=== PATIENT | male | born 1980 | race Caucasian/White ===

== ENCOUNTER 2018-01-18 12:41 | Emergency (ER) | payer OTHER ==
[2018-01-18 12:47] VITALS: BP 142/85; PULSE 62; TEMP 98.1; BMI 29.2
[2018-01-18] MEDS ORDERED: IBUPROFEN 600 MG TABLET (FP) PO ONE ×2 (13:18→13:27)
[2018-01-18] MEDS ORDERED: FLUORESCEIN NA 1 EA STRIP OD ONE (13:31)
[2018-01-18] MEDS ORDERED: DIPHTH,PERTUSS(ACELL),TET 0.5 ML DISP.SYRIN IM ONE (13:31)
--- NOTE | 2018-01-18 13:31 | PDOC ---
History of Present Illness - General Chief Complaint: Injury Stated Complaint: INJURY Time Seen by Provider: 01/18/18 12:59 History Source: Patient Exam Limitations: No Limitations - History of Present Illness Initial Comments: 01/18/18 13:40 Patient states while at work this morning, was taking something from a shelf in a plastic bag where it fell and landed striking him in the face. States had some heavy materials inside of the bag causing him to fall when he caught it. Patient states incurred injury to his left cheek and states vision has changed since that time. LOC, no drainage from nose or ears, no other injury. Occurred: reports: just prior to arrival, this morning Severity: reports: moderate Pain Location: reports: face, head Method of Injury: Yes: direct blow Modifying Factors: improves with: None Loss of Consciousness: no loss of consciousness Associated Symptoms (Fall): denies symptoms Past History - Travel Traveled outside of the country in the last 30 days: No Close contact w/someone who was outside of country & ill: No - Past Medical History Allergies/Adverse Reactions: Allergies Allergy/AdvReac Type Severity Reaction Status Date / Time No Known Allergies Allergy Verified 01/18/18 12:46 Home Medications: Ambulatory Orders NK [No Known Home Medication] 04/09/16 Asthma: Yes - Suicide/Smoking/Psychosocial Hx Smoking History: Never smoked Hx Alcohol Use: No Drug/Substance Use Hx: No Substance Use Type: None Review of Systems - Review of Systems Able to Perform ROS?: Yes Is the patient limited Nicaraguan proficient: Yes Constitutional: Yes: Symptoms Reported, See HPI, Malaise HEENTM: Yes: Symptoms Reported, See HPI, Eye Pain, Blurred Vision, Tearing (to ) Respiratory: Yes: See HPI. No: Symptoms reported Integumentary: Yes: Symptoms Reported, See HPI, Bruising All Other Systems: Reviewed and Negative *Physical Exam - Vital Signs Last Vital Signs Temp Pulse Resp BP Pulse Ox 98.1 F 62 16 142/85 99 01/18/18 12:45 01/18/18 12:45 01/18/18 12:45 01/18/18 12:45 01/18/18 12:45 - Physical Exam General Appearance: Yes: Nourished, Appropriately Dressed, Apparent Distress, Moderate Distress HEENT: positive: SYLVIE, Normal ENT Inspection, TMs Normal (no hemotympanum, no drainage from nose or ears, no evidence of skull fracture), Pharynx Normal, Other (patient with swollen and very tender inferior orbit, negative EOM, visual acuity is 20/100 in affected eye, 20/60 in unaffected eye) Neck: positive: Supple, Other. negative: Tender Respiratory/Chest: positive: Lungs Clear, Normal Breath Sounds Gastrointestinal/Abdominal: positive: Soft Integumentary: positive: Swelling, Ecchymosis, Bruising. 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 Tetanus/diphtheria/pertussis booster was updated today, patient given ibuprofen and ice pack and states feels better. *DC/Admit/Observation/Transfer Diagnosis at time of Disposition: Contusion of face Qualifiers: Encounter type: initial encounter Qualified Code(s): S00.83XA - Contusion of other part of head, initial encounter - Discharge Dispostion Disposition: HOME Condition at time of disposition: Stable Decision to Admit order: No - Referrals Referrals: Mayuri Greer [Primary Care Provider] - - Patient Instructions Printed Discharge Instructions: DI for Eye Contusion Additional Instructions: Rest, avoid strenuous activity or exercise for the next 24-48 hours May use ice on contusions as needed. May use Tylenol or Motrin for pain relief Watch and seek evaluation for changes in behavior including crankiness, inconsolability, quietness/ sleepiness that is inappropriate, tiredness that is inappropriate, watch for worsening and changes of behavior. Seek immediate evaluation/return to emergency department for vomiting, mental status changes, pain that's out of proportion , bloody drainage from ears or nose. Your tetanus/diphtheria/pertussis booster was updated today Followup with private physician as needed in one to 2 days for reevaluation - Post Discharge Activity Forms/Work/School Notes: Back to Work
[2018-01-18] MEDS ORDERED: FLUORESCEIN NA 1 EA STRIP ONE (13:55)
== END 2018-01-18 15:14 | disposition home or self-care (01) ==
LOC: JERFT 12:41
PROC: 3E0234Z Introduction of Serum, Toxoid and Vaccine into Muscle, Percutaneous Approach (ICD-10-PCS; principal; 2018-01-18)
DX: S00.83XA Contusion of other part of head, initial encounter (principal); W20.8XXA Other cause of strike by thrown, projected or falling object, initial encounter; Y93.89 Activity, other specified; Y92.89 Other specified places as the place of occurrence of the external cause; Y99.0 Civilian activity done for income or pay
CPT/HCPCS: 70486-TC; 90471; 90715; 99281-25

== ENCOUNTER 2018-08-27 09:10 | Emergency (ER) | payer OTHER ==
[2018-08-27 09:26] VITALS: BMI 37.8
--- NOTE | 2018-08-27 09:45 | PDOC ---
History of Present Illness - General Chief Complaint: Chest Pain Stated Complaint: CHEST PAIN Time Seen by Provider: 08/27/18 09:44 History Source: Patient, Spouse (), Topper Packer Used (Language [employer] Telephone), Old Records Exam Limitations: Language Barrier - History of Present Illness Initial Comments: HPI: 37 y/o male presenting to [facility] ED complaining of four days of blurry vision, sensation of presyncope, increased tiredness, shortness of breath, poor exertional tolerance, and left sided chest pain. States his vision is blurry and he has trouble seeing. Further states it sometimes seems like I am stepping out into thin air because I cant see below me. Has been waking up more tired than normal over the past several days; sometimes feels like he is going to pass out. Denies actually losing consciousness, falling, or recent trauma. States the chest pain is localized to the left anterior chest wall. Made worse by inspiration and movement of the left arm. States he is usually able to climb up multiple flights of stairs without difficulty but has had to stop every few steps to catch his breath. Pt is Dominican speaking. 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 Records reviewed from this facility. Pt was admitted for facial numbness. Underwent CT, CTA, and MRI without acute findings. Neurology suggested TIA ??. - Psoriasis but does not take any controlling medication Called pt's pharmacy who verified the pt had not filled medication in approx. 1 year. Last prescription was for an antibiotic. Not prescribed any maintenance medications. Review of Systems: In addition to that documented in the HPI above, the additional ROS was obtained : Constitutional: Denies fevers or chills Head: Endorses vision changes ENMT: Denies sore throat CV: Per HPI Resp: Per HPI GI: Denies vomiting or diarrhea : Denies painful urination, hematuria MSK: Denies recent trauma, pain or swelling to lower extremities Skin: Denies new rashes Neuro: Denies new numbness or tingling or weakness Endocrine: Denies polyuria Heme: Denies bleeding or bruising Past History - Past Medical History Allergies/Adverse Reactions: Allergies Allergy/AdvReac Type Severity Reaction Status Date / Time No Known Allergies Allergy Verified 08/27/18 09:23 Home Medications: Ambulatory Orders metFORMIN HCL [Metformin HCl] 500 mg PO BID 08/27/18 Asthma: Yes COPD: No Diabetes: Yes - Suicide/Smoking/Psychosocial Hx Smoking History: Never smoked Hx Alcohol Use: No Drug/Substance Use Hx: No Substance Use Type: None Review of Systems - Review of Systems Able to Perform ROS?: Yes *Physical Exam - Vital Signs Last Vital Signs Temp Pulse Resp BP Pulse Ox 98.2 F 113 H 18 147/95 98 08/27/18 09:23 08/27/18 09:23 08/27/18 09:23 08/27/18 09:23 08/27/18 09:23 - Physical Exam Comments: Constitutional: Well-developed, well-nourished adult male in no acute distress or obvious discomfort. Found semi-fowlers on hospital bed. Alert and oriented x4. Answered all questions appropriately and completely. Speech was non-labored , non-pressured. Head: Normocephalic. No obvious external signs of trauma. Eyes: Pupils 4mm and PERRL bilaterally. EOMI but pt endorses pain to middle of forehead during lateral and medial gazes. Sclerae white. Conjunctiva moist and not injected. Ears: Hearing grossly intact. Nose: No nasal discharge. Throat: Oral cavity and pharynx normal. No inflammation, swelling, exudate, or lesions. Uvula midline. Neck: Supple, trachea is midline. Cardiovascular / Chest: Tachycardic rate and regular rhythm. Systolic murmur loudest on right side of sternal border. No rubs, clicks, or gallops. Peripheral pulses: radial pulses full. No pretibial edema. Point tenderness to left upper outer anterior chest wall. Pain made worse with active and passive ROM of left arm. Respiratory: Breathing unlabored. Equal chest rise and fall. Clear to auscultation bilaterally. No stridor, no wheezing, no rhonchi. Walked through the department in conversation without become more short of breath. Gastrointestinal: abdomen is soft, non-tender, non-distended. No pulsatile masses. No obvious signs of trauma. Neuro: Alert and oriented. Moving all four extremities spontaneously. No focal deficits. Cranial nerves intact. Sensation to all four extremities intact. Upper and lower extremities: proximal and distal strength 5/5. 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 Plantar flexion and dorsiflexion 5/5. No nuchal rigidity. Intact rapid alternating movement and heel to ga. Gait normal. Skin: Warm, dry, and intact. Psoriatic lesions diffusely throughout the body. Psych: Affect: appropriate. Mood: normal. ED Treatment Course - LABORATORY CBC & Chemistry Diagram: 08/27/18 11:25 08/27/18 11:25 Medical Decision Making - Medical Decision Making *Reviewed vital signs, nursing notes, and prior visit documentation (if available). 37 y/o male presenting with multiple symptoms. Most concerned with acute SOB with decreased exertional tolerance and reproducible chest pain. Afebrile but persistently tachycardic on triage vitals. Not hypotensive. Concern for PE given tachycardia and SOB. CBC unremarkable for anemia or leukocytosis. CMP unremarkable for significant electrolyte derangement. Troponin not elevated. EKG revealed sinus tachycardia without ischemic changes. No acute cardiopulmonary findings on CXR. D-Dimer elevated. Ordered CTA to evaluate further for PE. Endorses lower abdominal pain to attending. Ordered CT of abdomen and pelvis to further evaluate. Pt reassessed and reports breathing has improved without intervention. CTA unremarkable for acute PE. No arrhythmia documented on telemetry monitoring over the several hours the pt was monitored in the department. Continue to suspect MSK pain. CT of abdomen revealed bilateral fat containing inguinal hernias. Will refer pt to general surgery for outpatient follow up. *DC/Admit/Observation/Transfer Diagnosis at time of Disposition: Shortness of breath on exertion, Lower abdominal pain, Inguinal hernia of left side without obstruction or gangrene, Inguinal hernia of right side without obstruction or gangrene Chest pain Qualifiers: Chest pain type: chest pain on breathing Qualified Code(s): R07.1 - Chest pain on breathing - Discharge Dispostion Disposition: HOME Condition at time of disposition: Good Decision to Admit order: No - Referrals Referrals: Ok Vang MD [Staff Physician] - [facility] [place] [Provider Group] - Patient Instructions Printed Discharge Instructions: DI for Atypical Chest Pain, DI for Shortness of Breath Additional Instructions: Hoy te vieron por dolor de pecho, falta de aliento y sensacin de que te ibas a desmayar. Tu anlisis de lexus y radiografas alyssa normales hoy. Es probable que vidal sntomas no silvana del corazn o los pulmones. Las radiografas mostraron que tienes pequeas hernias en la henrik. Esta puede ser la causa de grubbs dolor abdominal. Debe hacer un seguimiento con un cirujano general en la clnica para scarlett evaluacin adicional. He colocado scarlett referencia para que usted misty al Dr. Vang. Grubbs nmero est incluido en el paquete. Tendr que llamar para hacer scarlett usman. Enrique un seguimiento con grubbs mdico de atencin primaria en los prximos 3 a 4 de jesus. Tendr que llamar para hacer scarlett usman. Puede eamon el contador de Tylenol o Advil segn sea necesario para el dolor. Eamon mya se indica en el prospecto. No exceda la dosis recomendada. Vaya al departamento de emergencias ms cercano si grubbs afeccin empeora o si jose que necesita scarlett evaluacin de emergencia adicional. You were seen today for chest pain, shortness of breath and feeling like you were going to pass out. Your bloodwork and xrays were normal today. Your symptoms are not likely to be from your heart or your lungs. The xrays showed you have small hernias in your groin. This may be the cause of your abdominal pain. You should follow up with a general surgeon in the clinic for further evaluation. I have placed a referral for you to see Dr. Vang. Her number is included in the packet. You will need to call to make an appointment. Follow up with your primary care doctor within the next 3-4 days. You will need to call to make an appointment. You can take over the counter Tylenol or Advil as needed for pain. Take as directed on the package insert. Do not exceed the recommended dosage. Go to the nearest emergency department if your condition worsens or you feel like you need additional emergency evaluation. Print Language: FAROESE - Post Discharge Activity Forms/Work/School Notes: Back to Work
[2018-08-27] MEDS ORDERED: LACTATED RINGERS SOLUTION 1000 ML INFUS.BAG IV ONE (10:41)
[2018-08-27 12:07] LABS: ALBUMIN 3.7 g/dl (3.4-5.0); ALK PHOS 132 U/L (45-117); ANION GAP 7 MMOL/L (8-16); BILIRUBIN,TOTAL 0.3 mg/dL (0.2-1); BLOOD UREA NITROGEN 16 mg/dL (7-18); CALCIUM 8.5 mg/dL (8.5-10.1); CHLORIDE 108 mmol/L (98-107); CO2 27 mmol/L (21-32); CREATININE 0.8 mg/dL (0.55-1.3); GLUCOSE,RANDOM 159 mg/dL (74-106); SGOT/AST 28 U/L (15-37); SGPT/ALT 58 U/L (13-61); SODIUM 142 mmol/L (136-145); TOT PROT 6.6 g/dl (6.4-8.2)
[2018-08-27 12:12] LABS: BASO % 0.6 % (0-2.0); EOS % 6.3 % (0-4.5); HEMATOCRIT 44.7 % (35.4-49); HEMOGLOBIN 15.2 GM/dL (11.7-16.9); LYMPH % 19.2 % (8-40); MCH 29.4 pg (25.7-33.7); MCHC 34.1 g/dl (32.0-35.9); MEAN CELL VOLUME 86.3 fl (80-96); MEAN PLT VOLUME 10.3 fl (7.5-11.1); MONO % 8.6 % (3.8-10.2); NEUT % 65.3 % (42.8-82.8); PLATELET COUNT 184 K/MM3 (134-434); RBC 5.18 M/mm3 (4.00-5.60); RDW 13.6 % (11.9-15.9); WHITE BLOOD COUNT 8.2 K/mm3 (4.0-10.0)
[2018-08-27 12:56] LABS: N-TERMINAL BNP < 5.0 pg/ml (5-125)
--- NOTE | 2018-08-27 13:46 | EKG ---
Test Reason : Blood Pressure : / mmHG Vent. Rate : 100 BPM Atrial Rate : 100 BPM P-R Int : 148 ms QRS Dur : 104 ms QT Int : 346 ms P-R-T Axes : 050 052 016 degrees QTc Int : 446 ms POOR DATA QUALITY, INTERPRETATION MAY BE ADVERSELY AFFECTED NORMAL SINUS RHYTHM POSSIBLE LEFT ATRIAL ENLARGEMENT INCOMPLETE RIGHT BUNDLE BRANCH BLOCK CANNOT RULE OUT INFERIOR INFARCT (CITED ON OR BEFORE 03-MAY-2014) ABNORMAL ECG WHEN COMPARED WITH ECG OF 03-MAY-2014 16:45, NO SIGNIFICANT CHANGE WAS FOUND Confirmed by Agus Ramires MD ([id number]) on 08/27/2018 1:46:35 PM Referred By: Confirmed By:Agus Ramires MD
--- NOTE | 2018-08-27 14:13 | PDOC ---
Documentation entered by Amanda Irizarry SCRIBE, acting as scribe for Marcos Telles MD. Marcos Telles MD: This documentation has been prepared by the Juan C sherman Amanda, SCRIBE, under my direction and personally reviewed by me in its entirety. I confirm that the documentation accurately reflects all work, treatment, procedures, and medical decision making performed by me. Attending Attestation - Resident Resident Name: BrunsonFredy - ED Attending Attestation I have performed the following: I have examined & evaluated the patient, The case was reviewed & discussed with the resident, I agree w/resident's findings & plan, Exceptions are as noted - HPI HPI: 08/27/18 11:17 The patient is a 37 year old male, indonesian speaking, with h/o psoriasis, presenting to the ED complaining of four days of shortness of breath and left sided chest pain. He reports his chest pain is localized to the left anterior chest, exacerbated by deep inspiration and movement of the left upper extremity. He also reports increased SOB with ambulating stairs. Pt endorses increased fatigue as well. Pt states he has been checking his sugars, and they have been in the 200-300 range, though he denies any history of DM. - Physicial Exam PE: 08/27/18 11:20 GENERAL: Awake, alert, and fully oriented, in no acute distress. HEAD: No signs of trauma EYES: PERRLA, EOMI, sclera anicteric, conjunctiva clear ENT: Auricles normal inspection, hearing grossly normal, nares patent, oropharynx clear without exudates. Moist mucosa NECK: Nontender, no stepoffs, Normal ROM, supple, no lymphadenopathy, JVD, or masses LUNGS: Breath sounds equal, clear to auscultation bilaterally. No wheezes, and no crackles HEART: Regular rate and rhythm, normal S1 and S2, no murmurs, rubs or gallops ABDOMEN: + RLQ tenderness, normoactive bowel sounds. No guarding, no rebound. No masses EXTREMITIES: Normal range of motion, no edema. No clubbing or cyanosis. No cords, erythema, or tenderness NEUROLOGICAL: Cranial nerves II through XII intact. 5/5 strength and sensation in all extremities, Normal speech, normal gait, normal cerebellar function - Medical Decision Making 08/27/18 14:08 37 M with SOB and pleuritic chest pain. Will r/o PE. Pt likely with undiagnosed DM given recent elevated blood sugars. Pt found to have RLQ tenderness on exam. Will r/o Appy. - Labs - Ddimer - trop, EKG - CTAP - Possible CTA chest 08/27/18 16:34 ddimer elevated 900 Labs otherwise wnl CTA obtained, negative for PE No appy Pt is well appearing, with normal vitals. Clinically stable for DC at this time. I discussed the physical exam findings, ancillary test results and final diagnoses with the patient. I answered all of the patient's questions. The patient was satisfied with the care received and felt comfortable with the discharge plan and treatment plan. The patient agrees to follow up with the primary care physician within 24-72 hours.
[2018-08-27 18:36] VITALS: BP 133/78; PULSE 75; TEMP 98
== END 2018-08-27 18:50 | disposition home or self-care (01) ==
LOC: JER 09:10
PROC: 3E0337Z Introduction of Electrolytic and Water Balance Substance into Peripheral Vein, Percutaneous Approach (ICD-10-PCS; principal; 2018-08-27)
DX: K40.20 Bilateral inguinal hernia, without obstruction or gangrene, not specified as recurrent (principal); R07.1 Chest pain on breathing; E11.9 Type 2 diabetes mellitus without complications; Z79.84 Long term (current) use of oral hypoglycemic drugs
CPT/HCPCS: 36415; 71046-TC-FY; 71275-TC; 74177-TC; 80053; 83880; 84443; 84484; 85025; 85379; 93005; 93010; 99283-25

== ENCOUNTER 2018-10-29 11:24 | Emergency (ER) | payer OTHER ==
[2018-10-29 11:37] VITALS: BMI 37.8
--- NOTE | 2018-10-29 11:42 | PDOC ---
History of Present Illness <Darron Hood - Last Filed: 10/29/18 17:27> - History of Present Illness Initial Comments: 38yo M with PMH of TIA in 2016, psoriasis presenting with numbness on the left side of his body and the right side of his face x 4 days. Patient states his mother noted that his speech was slurred. He complains of headache, as well as chest pain. Patient suffered a syncopal episode today in which he almost fell but was held up by people who caught him. Prior to the episode, he felt chest pain, lightheaded, dizzy, diaphoretic, and weak. He states he has had chest pain that has been present for months and he has been evaluated in this department for such in the past, however it has worsened in the past couple days. It is unclear whether the patient has a history of diabetes as he stated he was taking his friend's metformin, and then later stated he did not take metformin. No fevers or chills. PCP: Dr. Greer <Haylee Jean - Last Filed: 10/30/18 07:10> - General Chief Complaint: CVA/TIA Stated Complaint: SENT BY PCP/DIZZINESS RT FACIAL PAIN Time Seen by Provider: 10/29/18 11:41 NIH Stroke Scale - Last Known Well Date/Time & Onset Date Last Known Well: 10/25/18 Time Last Known Well: 12:00 - Initial Evaluation Level of consciousness: Alert Ask patient the month and their age: Answers both correctly Ask patient to open & close eyes; make fist and let go: Obeys both correctly Best gaze (horizontal eye movement): Normal Visual field testing: No visual field loss Facial paresis (Show teeth/raise eyebrows/close eyes tight): Minor paralysis ( flattened nasolabial fold, asymmetry on smiling) Motor Function: Left Arm: Normal Motor Function: Right Arm: Normal (extends arm 90 (or 45) degrees for 10 seconds without drift Motor Function: Left Leg: Normal (extends leg 30 degrees for 5 seconds without drift) Motor Function: Right Leg: Normal (extends leg 30 degrees for 5 seconds without drift) Limb Ataxia: No ataxia Sensory(Use pinprick test arms,legs,trunk,face/side to side): Mild to moderate decrease in sensation Best language (Describe picture, name items, read sentences): No Aphasia Dysarthria (read several words): Normal articulation Extinction and Inattention: No abnormality - Total Score NIH Stroke Scale Score: 2 <MirandaHaylee Roc Last Filed: 10/30/18 07:10> tPA Exclusion checklist 3-4.5h - Time Elapsed Date last known well: 10/25/18 Time last known well: 12:00 Elaspsed time: 4 Day(s) and 19 Hour(s) and 3 Minutes - Thrombolytic Therapy Candidate Is patient eligible for thrombolytic therapy: No - Ineligibility reason(s) Reasons No tPA given: Outside of window - delayed arrival <MirandaHaylee Roc Last Filed: 10/30/18 07:10> Past History <Darron Hood - Last Filed: 10/29/18 17:27> - Past Medical History Asthma: Yes COPD: No Diabetes: Yes HTN: Yes - Suicide/Smoking/Psychosocial Hx Smoking History: Never smoked Information on smoking cessation initiated: No Hx Alcohol Use: No Drug/Substance Use Hx: No Substance Use Type: None <MirandaHaylee - Last Filed: 10/30/18 07:10> - Past Medical History Allergies/Adverse Reactions: Allergies Allergy/AdvReac Type Severity Reaction Status Date / Time No Known Allergies Allergy Verified 10/29/18 14:11 Review of Systems - Review of Systems Comments:: Constitutional: no fever, no chills HEENT: no throat pain, no dysphagia Cardiovascular: +chest pain, +palpitations Respiratory: no cough, no shortness of breath Gastrointestinal: no abdominal pain, no nausea Genitourinary: no dysuria, no frequency Musculoskeletal: no myalgia, no arthralgia Skin: no rash, no itching Neurologic: +focal numbness, +weakness <MirandaHaylee Roc Last Filed: 10/30/18 07:10> *Physical Exam - Vital Signs Last Vital Signs Temp Pulse Resp BP Pulse Ox 97.8 F 71 16 134/70 97 10/29/18 17:18 10/29/18 17:18 10/29/18 17:18 10/29/18 17:18 10/29/18 17:18 <Darron Hood - Last Filed: 10/29/18 17:27> - Vital Signs Last Vital Signs Temp Pulse Resp BP Pulse Ox 98.2 F 82 17 150/100 97 10/29/18 11:33 10/29/18 11:33 10/29/18 11:33 10/29/18 11:33 10/29/18 11:33 - Physical Exam Comments: General: Awake, alert, and fully oriented, in no acute distress Head: No signs of trauma Eyes: EOMI, sclera anicteric ENT: Moist mucus membranes Neck: Normal ROM, supple Lungs: Lungs clear, Normal breath sounds Cardio: Regular rhythm, S1 and S2 present Abdomen: Soft, nontender Extremities: Normal range of motion, Distal pulses present SKIN: Warm, Dry, normal turgor Neurologic: Please see NIHSS <Haylee Jean - Last Filed: 10/30/18 07:10> ED Treatment Course - LABORATORY CBC & Chemistry Diagram: 10/29/18 12:08 10/29/18 12:05 - ADDITIONAL ORDERS Additional order review: Laboratory Results 10/29/18 10/29/18 10/29/18 12:13 12:08 12:08 PT with INR INR D-Dimer < 215 Sodium Potassium Chloride Carbon Dioxide Anion Gap BUN Creatinine Est GFR (CKD-EPI)AfAm Est GFR (CKD-EPI)NonAf POC Glucometer 103 Random Glucose Calcium Total Bilirubin AST ALT Alkaline Phosphatase Creatine Kinase Troponin I Total Protein Albumin Triglycerides Cholesterol Total LDL Cholesterol HDL Cholesterol Blood Type O POSITIVE Antibody Screen Negative 10/29/18 10/29/18 12:08 12:05 PT with INR 12.10 INR 1.03 D-Dimer Sodium 140 Potassium 4.1 Chloride 107 Carbon Dioxide 29 Anion Gap 5 L BUN 15.9 Creatinine 0.8 Est GFR (CKD-EPI)AfAm 131.34 Est GFR (CKD-EPI)NonAf 113.32 POC Glucometer Random Glucose 90 Calcium 8.9 Total Bilirubin 0.6 AST 27 ALT 71 H Alkaline Phosphatase 122 H Creatine Kinase 117 Troponin I < 0.02 Total Protein 7.5 Albumin 4.3 Triglycerides 126 Cholesterol 160 Total LDL Cholesterol 107 H HDL Cholesterol 40 Blood Type Antibody Screen 10/29/18 10/29/18 12:13 12:08 RBC 5.45 MCV 84.7 MCHC 34.3 RDW 13.8 MPV 9.6 Neutrophils % 63.2 Lymphocytes % 25.6 D Monocytes % 6.3 Eosinophils % 4.0 Basophils % 0.9 POC Glucometer 103 - Medications Given in the ED: ED Medications Discontinued Medications Generic Name Dose Route Start Last Admin Trade Name Eduard PRN Reason Stop Dose Admin Aspirin 325 mg 10/29/18 14:14 10/29/18 14:46 Asa - PO 10/29/18 14:15 325 mg ONCE ONE Administration <Darron Hood - Last Filed: 10/29/18 17:27> - LABORATORY CBC & Chemistry Diagram: 10/29/18 12:08 10/29/18 12:05 <Haylee Jean - Last Filed: 10/30/18 07:10> Medical Decision Making - Medical Decision Making 38yo M with PMH of TIA in 2016, psoriasis presenting with numbness on the left side of his body and the right side of his face x 4 days. DDX including but not limited to CVA/TIA, ACS, PE, MS Labs CT Head EKG: rate 72, Qtc 394, NSR, incomplete RBBB, J point elevation in V2, no significant changes from previous EKG on 08/27/18 Patient with score of 2 on NIHSS; as he has had these symptoms for four days, he is outside the window for tpa therapy. 10/29/18 12:07 CBC WBC 8.9 K/mm3 (4.0-10.0) 10/29/18 12:08 RBC 5.45 M/mm3 (4.00-5.60) 10/29/18 12:08 Hgb 15.8 GM/dL (11.7-16.9) 10/29/18 12:08 Hct 46.2 % (35.4-49) 10/29/18 12:08 MCV 84.7 fl (80-96) 10/29/18 12:08 MCH 29.0 pg (25.7-33.7) 10/29/18 12:08 MCHC 34.3 g/dl (32.0-35.9) 10/29/18 12:08 RDW 13.8 % (11.9-15.9) 10/29/18 12:08 Plt Count 175 K/MM3 (134-434) 10/29/18 12:08 MPV 9.6 fl (7.5-11.1) 10/29/18 12:08 Absolute Neuts (auto) 5.6 K/mm3 (1.5-8.0) 10/29/18 12:08 Neutrophils % 63.2 % (42.8-82.8) 10/29/18 12:08 Lymphocytes % 25.6 % (8-40) D 10/29/18 12:08 Monocytes % 6.3 % (3.8-10.2) 10/29/18 12:08 Eosinophils % 4.0 % (0-4.5) 10/29/18 12:08 Basophils % 0.9 % (0-2.0) 10/29/18 12:08 Nucleated RBC % 0 % (0-0) 10/29/18 12:08 No anemia or leukocytosis CMP Sodium 140 mmol/L (136-145) 10/29/18 12:05 Potassium 4.1 mmol/L (3.5-5.1) 10/29/18 12:05 Chloride 107 mmol/L (98-107) 10/29/18 12:05 Carbon Dioxide 29 mmol/L (21-32) 10/29/18 12:05 Anion Gap 5 MMOL/L (8-16) L 10/29/18 12:05 BUN 15.9 mg/dL (7-18) 10/29/18 12:05 Creatinine 0.8 mg/dL (0.55-1.3) 10/29/18 12:05 Est GFR (CKD-EPI)AfAm 131.34 10/29/18 12:05 Est GFR (CKD-EPI)NonAf 113.32 10/29/18 12:05 Random Glucose 90 mg/dL (74-106) 10/29/18 12:05 Calcium 8.9 mg/dL (8.5-10.1) 10/29/18 12:05 Total Bilirubin 0.6 mg/dL (0.2-1) 10/29/18 12:05 AST 27 U/L (15-37) 10/29/18 12:05 ALT 71 U/L (13-61) H 10/29/18 12:05 Alkaline Phosphatase 122 U/L (45-117) H 10/29/18 12:05 Creatine Kinase 117 U/L (26-308) 10/29/18 12:05 Troponin I < 0.02 ng/ml (0.00-0.05) 10/29/18 12:05 Total Protein 7.5 g/dl (6.4-8.2) 10/29/18 12:05 Albumin 4.3 g/dl (3.4-5.0) 10/29/18 12:05 Triglycerides 126 mg/dL (0-150) 10/29/18 12:05 Cholesterol 160 mg/dL (50-200) 10/29/18 12:05 Total LDL Cholesterol 107 mg/dL (5-100) H 10/29/18 12:05 HDL Cholesterol 40 mg/dL (40-60) 10/29/18 12:05 Electrolytes unremarkable Tpn undetectable D-Dimer is normal. Low suspicion for PE CXR: The lungs are well aerated without evidence of a pulmonary infiltrates, atelectasis. No evidence of a pulmonary edema, CHF. No pneumothorax, or pleural effusion is seen. Unremarkable contour of the thoracic aorta, superior mediastinum. The heart is borderline enlarged. The visualized osseous structures appear intact. Impression. No evidence of active pulmonary disease. CT Head: ADDENDUM #1 The present study was compared with CT brain May 03, 2014, MRI of the brain May 04, 2014. ORIGINAL REPORT History. Rule out CVA. CT scan of the brain C-. Findings. Serial axial images of the brain were obtained from foramen magnum to the cranial vertex without intravenous contrast with coronal, sagittal reconstruction.. The CSF spaces are age-appropriate. No evidence of focal, or diffuse atrophic changes. No evidence of hydrocephalus, acute subarachnoid hemorrhage, acute intra-axial or extra-axial fluid collection consistent with subdural or epidural hematoma. No mass effect, midline shift, acute ischemic changes, herniation or edema is present. Normal wilkins matter white matter differentiation. The cortical sulci, sylvian fissures, perimesencephalic cisterns are not effaced. Examination of the bone windows show no fracture. Normal intracranial physiological calcifications are observed. The visualized paranasal sinuses and mastoid air cells are clear. Impression. No evidence of acute intracranial hemorrhage, edema, midline shift, mass effect, or skull fracture. There is no CT evidence of acute territorial infarction. Discussed case with Dr. Sandoval who recommends admission for possible CVA. Patient to be placed on telemetry for chest pain and syncopal episode. Recommends 325 ASA. Plan for admission 10/29/18 14:[address] Carlisle who accepted patient for admission under herself 10/29/18 14:45 Patient stating he wants to leave AMA. He has a child to take care of at home that no one is able to care for instead. He verbalized understanding that he has the risk of cardiac arrest, severe disability, or . Patient signed AMA form. 10/29/18 16:55 <Haylee Jean - Last Filed: 10/30/18 07:10> *DC/Admit/Observation/Transfer - Discharge Dispostion Decision to Admit order: No <Darron Hood - Last Filed: 10/29/18 17:27> - Discharge Dispostion Decision to Admit order: Yes <Haylee Jean - Last Filed: 10/30/18 07:10> Diagnosis at time of Disposition: Facial paresis, Syncope and collapse, Left against medical advice Chest pain Qualifiers: Chest pain type: unspecified Qualified Code(s): R07.9 - Chest pain, unspecified - Discharge Dispostion Disposition: AGAINST MEDICAL ADVICE Condition at time of disposition: Guarded
[2018-10-29] MEDS ORDERED: SODIUM CHLORIDE 1,000 ML IV SCH (12:15)
[2018-10-29 12:24] LABS: BASO % 0.9 % (0-2.0); HEMATOCRIT 46.2 % (35.4-49); HEMOGLOBIN 15.8 GM/dL (11.7-16.9); LYMPH % 25.6 % (8-40); MCHC 34.3 g/dl (32.0-35.9); MEAN CELL VOLUME 84.7 fl (80-96); MEAN PLT VOLUME 9.6 fl (7.5-11.1); MONO % 6.3 % (3.8-10.2); NEUT % 63.2 % (42.8-82.8); PLATELET COUNT 175 K/MM3 (134-434); RBC 5.45 M/mm3 (4.00-5.60); RDW 13.8 % (11.9-15.9); WHITE BLOOD COUNT 8.9 K/mm3 (4.0-10.0)
[2018-10-29 12:38] LABS: INR 1.03 (0.83-1.09); PROTHROMBIN TIME (PATIENT) 12.1 SEC (9.7-13.0)
[2018-10-29 12:48] LABS: ALBUMIN 4.3 g/dl (3.4-5.0); ALK PHOS 122 U/L (45-117); ANION GAP 5 MMOL/L (8-16); BILIRUBIN,TOTAL 0.6 mg/dL (0.2-1); BLOOD UREA NITROGEN 15.9 mg/dL (7-18); CALCIUM 8.9 mg/dL (8.5-10.1); CHLORIDE 107 mmol/L (98-107); CHOLESTEROL 160 mg/dL (50-200); CO2 29 mmol/L (21-32); CREATININE 0.8 mg/dL (0.55-1.3); GLUCOSE,RANDOM 90 mg/dL (74-106); HDL CHOLESTEROL 40 mg/dL (40-60); POTASSIUM 4.1 mmol/L (3.5-5.1); SGOT/AST 27 U/L (15-37); SGPT/ALT 71 U/L (13-61); SODIUM 140 mmol/L (136-145); TOT PROT 7.5 g/dl (6.4-8.2); TRIGLYCERIDES 126 mg/dL (0-150)
--- NOTE | 2018-10-29 13:41 | PDOC ---
Documentation entered by Giovanni Rojas SCRIBE, acting as scribe for Angel Watson MD. Angel Watson MD: This documentation has been prepared by the Bob sherman Elijah, SCRIBE, under my direction and personally reviewed by me in its entirety. I confirm that the documentation accurately reflects all work, treatment, procedures, and medical decision making performed by me. Attending Attestation - Resident Resident Name: Haylee Jean - ED Attending Attestation I have performed the following: I have examined & evaluated the patient, The case was reviewed & discussed with the resident, I agree w/resident's findings & plan, Exceptions are as noted - HPI HPI: 10/29/18 12:17 38y M hx of ?dm, presents with complaint of 4 days of L sided tingling and slurred speech, in addition pt had an episode of syncope preceeded by mild headache, lightheadedness, cp, diaphoresis, sob. Pt currently feeling better but sitll has tingling on his extremities without focal weakness, vision changes , n/v, current cp, sob, hemoptysis, leg swelling, fever/chills, cough, diarrhea , melena, bpr. Pt endorses mild dysuria. on exam pt has deminished sensation on L face/arms/legs. strength symmetric concern for possible CVA will r/o acs w trop ekg to screen for arrythmia/acs asa if ct head negative wlil ck bgm 10/29/18 13:08 Patient is a 38 year old male with a significant past medical history of psoriasis, asthma, HTN, and DM who presents to the ED with x4 days of left sided tingling and slurred speech. The patient reports that x4 days prior he felt as if was tongue was asleep and that his speech was slurred. The patient also notes two episodes of syncope with the most recent occurring today while the patient was on the train to work, and associates symptoms of headache, chest pain, SOB, diaphoresis and palpitations prior to syncopizing. Patient also endorses some dysuria and leg pain. Denies Vomiting and Diarrhea Allergies: NKA PCP: Dr. Greer - Physicial Exam PE: 10/29/18 13:08 GENERAL: The patient is awake, alert, and fully oriented, Nontoxic - in no acute distress. HEAD: Normocephalic, atraumatic. EYES: extraocular movements intact, sclera anicteric, conjunctiva clear. ENT: Normal voice, Moist mucous membranes. NECK: Normal range of motion, supple without lymphadenopathy, JVD, or masses. LUNGS: Breath sounds equal, clear to auscultation bilaterally. No wheezes, no crackles, no rales. HEART: Regular rate and rhythm, normal S1 and S2 without murmur, rub or gallop. ABDOMEN: Soft, nontender, normoactive bowel sounds. No guarding, no rebound. No masses. EXTREMITIES: Normal range of motion, no edema. No clubbing or cyanosis. No cords, erythema, or tenderness. NEUROLOGICAL: No facial asymmetry, Normal speech, normal gait. PSYCH: Normal mood, normal affect. SKIN: Warm, Dry, normal turgor, no rashes or lesions noted. - Medical Decision Making 10/29/18 17:22 pt would like to leave AMA discussed with pt risks of leaving, pt understands the risks will dc with pmd and neuro fu with understanding that he can return at any time to complete the workup Heart Score/ECG Review - ECG Impressions Comment:: 10/29/18 12:22 Twelve-lead EKG was performed and reviewed by me. There is normal sinus rhythm with a normal rate. Rate of 72 In complete right bundle-branch block j point elevation in V2 Q waves inferiorly T-wave inversion in lead 3 with T-wave flattening in aVF When Compared with prior EKG dated 08/27/2018 there are no significant changes
[2018-10-29] MEDS ORDERED: ASPIRIN 325 MG TABLET PO ONE (14:14)
--- NOTE | 2018-10-29 14:33 | EKG ---
Test Reason : Blood Pressure : / mmHG Vent. Rate : 072 BPM Atrial Rate : 072 BPM P-R Int : 146 ms QRS Dur : 100 ms QT Int : 360 ms P-R-T Axes : 033 017 004 degrees QTc Int : 394 ms NORMAL SINUS RHYTHM INCOMPLETE RIGHT BUNDLE BRANCH BLOCK CANNOT RULE OUT INFERIOR INFARCT (CITED ON OR BEFORE 03-MAY-2014) ABNORMAL ECG WHEN COMPARED WITH ECG OF 27-AUG-2018 09:08, ST ELEVATION NOW PRESENT IN ANTERIOR LEADS QT HAS SHORTENED Confirmed by Lev Elmore ([id number]) on 10/29/2018 2:32:35 PM Referred By: Confirmed By:Lev Elmore
[2018-10-29] MEDS ORDERED: ASPIRIN 325 MG TABLET ONE (14:40)
--- NOTE | 2018-10-29 15:42 | HP ---
Admitting History and Physical - Primary Care Physician PCP: Dr Greer - Admission Chief Complaint: Chest pain x 4 days and presyncope x1 day History of Present Illness: Pt is a 38 yo M with PMHx of psoariasis, asthma presenting from home after he almost fell almost the train station this morning on the way to work. Pt describes feeling dizzy after having recurrent episodes of chest pain for the past 4 days. Pt reports recurrent episodes of chest pain lasting about a minute , pressure like, 7/10 radiating to L arm. Pt reported some associated tinging sensation, with dizziness and vertigo, with photophobia. No fevers, no neck stiffness. Pt has not had any vaccinations. Said his last doctor's visit was [address] Greer, who he said is retiring. Pt reports chronci SOB due to asthma, last asthma exacerbation was 6 months ago. Per pt he is allergic to pollen with watery eyes and asthma. He uses an asthma pump from his mother to control his symptoms. Pt had similar symptoms in 2014 and was managed as a TIA by Dr Sandoval. 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 Pulmonary: Yes: Asthma Gastrointestinal: Yes: Other (hepatic steatosis) Hepatobiliary: Yes: Other (hepatic steatosis) - Smoking History Smoking history: Never smoked - Alcohol/Substance Use Hx Alcohol Use: No - Social History ADL: Independent Occupation: works at [employer] History of Recent Travel: No Home Medications - Allergies Allergies/Adverse Reactions: Allergies Allergy/AdvReac Type Severity Reaction Status Date / Time No Known Allergies Allergy Verified 10/29/18 14:11 Physical Examination Vital Signs: Vital Signs Temperature 98.2 F 10/29/18 14:00 Pulse Rate 67 10/29/18 14:00 Respiratory Rate 17 10/29/18 14:00 Blood Pressure 103/63 10/29/18 14:00 O2 Sat by Pulse Oximetry (%) 100 10/29/18 14:00 Labs: CBC, BMP 10/29/18 12:08 10/29/18 12:05 ATTENDING PHYSICIAN STATEMENT I saw and evaluated the patient. I reviewed the resident's note and discussed the case with the resident. I agree with the resident's findings and plan as documented. SUBJECTIVE: OBJECTIVE: ASSESSMENT AND PLAN:
[2018-10-29 17:20] VITALS: BP 134/70; PULSE 71; TEMP 97.8
--- NOTE | 2018-10-29 23:00 | CON.NEURO ---
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 Pulmonary: Yes: Asthma Gastrointestinal: Yes: Other (hepatic steatosis) Hepatobiliary: Yes: Other (hepatic steatosis) - Alcohol/Substance Use Hx Alcohol Use: No - Smoking History Smoking history: Never smoked - Social History Usual Living Arrangement: With Spouse ADL: Independent Occupation: works at [employer] History of Recent Travel: No Home Medications - Allergies Allergies/Adverse Reactions: Allergies Allergy/AdvReac Type Severity Reaction Status Date / Time No Known Allergies Allergy Verified 10/29/18 14:11 Family Disease History - Family Disease History Family History: Denies (CVA) Review of Systems - Review of Systems Constitutional: reports: No Symptoms Eyes: reports: No Symptoms Neurological: reports: Dizziness, Headache, Incoordination, Numbness, Parasthesia Physical Exam-Neuro Vital Signs: Vital Signs Temperature 97.8 F 10/29/18 17:18 Pulse Rate 71 10/29/18 17:18 Respiratory Rate 16 10/29/18 17:18 Blood Pressure 134/70 10/29/18 17:18 O2 Sat by Pulse Oximetry (%) 97 10/29/18 17:18 Constitutional: Yes: Well Nourished Neck: Yes: WNL Labs: CBC, BMP 10/29/18 12:08 10/29/18 12:05 INR, PTT INR 1.03 (0.83-1.09) 10/29/18 12:08 - Neuro Exam Level Of Consciousness: Yes: Oriented to Person, Oriented to Place, Oriented to Time Eyes: Yes: PERRLA Speech: WNL Dominant Hand: Right Cranial Nerves II-XII Intact: Yes Gag: Present Response to light touch: Normal Response to pain prick: Normal Response to temperature: Normal Response to vibration: Normal Movement Disorders: Asterixis Motor Strength: 4/5: Left Arm, Right Arm, Left Leg, Right Leg Gait: Deferred Imaging - Results Cat Scan: Image Reviewed Problem List - Problems (1) Cerebrovascular accident Assessment/Plan: ?? TI A Right eye ptosis Doubt acute CVA 1.Neuro checks 2. MRI brain with no Frank 3. No ASA Thanks Code(s): I63.9 - CEREBRAL INFARCTION, UNSPECIFIED
== END 2018-10-29 17:17 | disposition left against medical advice (07) ==
LOC: JER 11:24 → UNDOADMIN 14:30 → JERBED 14:30 → JER 17:17
DX: T78.40XA Allergy, unspecified, initial encounter (principal)
CPT/HCPCS: 36415; 70450-TC; 71045-TC-FY; 80053; 82465; 82550; 82962; 83718; 83721; 84478; 84484; 85025; 85379; 85610; 86850; 86900; 86901; 93005; 93010; 99283-25; J7030

== ENCOUNTER 2022-10-18 11:07 | Emergency (ER) | payer OTHER ==
[2022-10-18 11:14] VITALS: BMI 42.5
[2022-10-18 12:19] LABS: BASO % 0.5 % (0-2.0); EOS % 6.1 % (0-4.5); HEMATOCRIT 44.7 % (35.4-49); LYMPH % 21.3 % (8-40); MCH 28.4 pg (25.7-33.7); MCHC 33.7 g/dl (32.0-35.9); MEAN CELL VOLUME 84.4 fl (80-96); MEAN PLT VOLUME 9.8 fl (7.5-11.1); MONO % 8.7 % (3.8-10.2); NEUT % 63.4 % (42.8-82.8); PLATELET COUNT 174 10^3/uL (134-434); RBC 5.29 M/mm3 (4.00-5.60); RDW 14.2 % (11.9-15.9); WHITE BLOOD COUNT 10.8 K/mm3 (4.0-10.0)
[2022-10-18 12:39] LABS: POTASSIUM 4.1 mmol/L (3.5-5.1)
[2022-10-18 12:41] LABS: ALBUMIN 3.7 g/dl (3.4-5.0); BLOOD UREA NITROGEN 16.9 mg/dL (7-18)
[2022-10-18 12:43] LABS: CREATININE 0.7 mg/dL (0.55-1.3)
[2022-10-18 12:45] LABS: BILIRUBIN,TOTAL 0.4 mg/dL (0.2-1); TOT PROT 7.3 g/dl (6.4-8.2)
[2022-10-18 15:53] VITALS: TEMP 97.9
[2022-10-18 18:18] VITALS: BP 135/89; PULSE 77; RESP 20
== END 2022-10-18 18:18 | disposition home or self-care (01) ==
LOC: JER 11:07
DX: R07.89 Other chest pain (principal); R10.32 Left lower quadrant pain; R10.31 Right lower quadrant pain
CPT/HCPCS: 36415; 71045-TC-FY; 71275-TC; 74177-TC; 80053; 84484; 85025; 93005; 93010; 99285-25; Q9967